=== PATIENT | male | born 1990 | race Caucasian/White ===

== ENCOUNTER 2018-12-31 01:18 | Emergency (ER) | payer MEDICAID ==
[~2018-12-31] VITALS: Ht 170.2 cm; Wt 60.0 kg
[~2018-12-31 01:18] MED LIST: IBUP-1984 PO; KEP500T PO; NO HOME MEDS
[2018-12-31] MEDS ORDERED: LORazepam 2 mg/ml vial IM ONE (01:25)
[2018-12-31] MEDS ORDERED: haloperidol lactate 5mg/ml inj IM ONE (01:25)
[2018-12-31] MEDS ORDERED: diphenhydrAMINE 50 mg/ml inj IM ONE (01:25)
[2018-12-31 01:54] LABS: BASOPHILS % (AUTO) 0.4 % (0-1); EOSINOPHILS # (AUTO) 0.1 X10'3 (0-0.9); EOSINOPHILS % (AUTO) 1.6 % (0-6); HEMATOCRIT 40.8 % (42.0-52.0); HEMOGLOBIN 13.9 g/dl (14.0-17.9); LYMPHOCYTES % (AUTO) 33.5 % (21-51); MEAN CORPUSCULAR HEMOGLOBIN 30.1 PG (27.0-31.0); MEAN CORPUSCULAR VOLUME 88.6 FL (78-98); MEAN PLATELET VOLUME 8.2 FL (7.4-10.4); MONOCYTES # (AUTO) 0.6 X10'3 (0-0.9); MONOCYTES % (AUTO) 6.8 % (2-12); NEUTROPHILS # (AUTO) 5.1 X10'3 (1.8-7.7); NEUTROPHILS % (AUTO) 57.7 % (42-75); PLATELET COUNT 263 X10'3 (140-440); RED BLOOD COUNT 4.61 X10'6 (4.70-6.10); RED CELL DISTRIBUTION WIDTH 13.9 % (11.5-14.5); WHITE BLOOD COUNT 8.9 X10'3 (4.5-11.0)
[2018-12-31 02:00] LABS: ALANINE AMINOTRANSFERASE 83 U/L (12-78); ALBUMIN 3.5 G/DL (3.4-5.0); ALBUMIN/GLOBULIN RATIO 0.9 (1.1-1.5); ALKALINE PHOSPHATASE 101 IU/L (46-116); ANION GAP 3 (8-16); ASPARTATE AMINO TRANSFERASE 13 U/L (10-37); BILIRUBIN,TOTAL 0.2 MG/DL (0.1-1.0); BLOOD UREA NITROGEN 12 MG/DL (7-18); CALCIUM 9.3 MG/DL (8.5-10.1); CHLORIDE 107 MMOL/L (99-107); GLUCOSE 89 MG/DL (70-104); POTASSIUM 3.9 MMOL/L (3.5-5.1); SODIUM 141 MMOL/L (135-145); TOTAL CARBON DIOXIDE 30.7 MMOL/L (24-32); TOTAL PROTEIN 7.3 G/DL (6.4-8.2); eGFR > 90 ML/MIN
[2018-12-31] MEDS ORDERED: nicotine 21mg patch - 24 hr TD ONE (02:00)
[2018-12-31 02:09] LABS: ETHANOL < 0.010 GM/DL (0.0-0.010)
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
--- NOTE | 2018-12-31 02:54 | NUR ---
The patient appears to be asleep at this time.
--- NOTE | 2018-12-31 04:46 | NUR ---
The patient appears to be asleep
--- NOTE | 2018-12-31 07:14 | NUR ---
Received Pt sleeping in bed comfortably with normal respirations.
[2018-12-31 09:47] LABS: URINE AMPHETAMINE SCREEN POSITIVE (Neg); URINE BARBITUATE SCREEN NEGATIVE (Neg); URINE BENZODIAZEPINES SCREEN NEGATIVE (Neg); URINE CANNABINOID SCREEN POSITIVE (Neg); URINE COCAINE SCREEN NEGATIVE (Neg); URINE METHADONE SCREEN NEGATIVE (Neg); URINE OPIATE SCREEN NEGATIVE (Neg); URINE PHENCYCLIDINE SCREEN NEGATIVE (Neg)
--- NOTE | 2018-12-31 10:23 | NUR ---
Pt awoke earlier and ate breakfast. Also used bathroom and was able to provide a urine sample. He returneed to bed and is currently sleeping w/o distress.
--- NOTE | 2018-12-31 12:35 | NUR ---
Pt continues to sleep w/o distress and normal respirations. Awoke briefly to snack on some raisons and returned to sleep. [facility] clinician will wait till pt has slept as needed before doing crisis evaluation.
--- NOTE | 2018-12-31 15:46 | NUR ---
Pt awoke for lunch and retuned to resting in bed. Spoke on phone with girl danny and conversation became irrate and loud at one point. Pt responded to statements to calm down. GF to visit later. Pt currently sleeping w/o distress.
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
[2018-12-31] MEDS ORDERED: OLANZapine **IM** 10 mg inj. IM ONE (16:35)
--- NOTE | 2018-12-31 17:08 | NUR ---
PT IN BED AND CALM WITH O2 SAT OF 98% AT 1645. PT CURRENTLY SLEEPING IN BED.
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
[2018-12-31] MEDS ORDERED: LORazepam 1 MG tablet PO PRN ×2 (18:35→18:40)
[2018-12-31] MEDS ORDERED: haloperidol 5mg tablet PO PRN (18:35)
[2018-12-31] MEDS ORDERED: diphenhydrAMINE 25mg capsule PO PRN (18:35)
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
[2019-01-01 05:39] VITALS: BP 105/64
--- NOTE | 2019-01-01 06:42 | NUR ---
pt appears to be resting comfortably on his right side. no signs of distress
[2019-01-01] MEDS ORDERED: levetiracetam 250mg tablet PO SCH (08:00)
[2019-01-01] MEDS ORDERED: OLANZapine 5mg rapidly disint. tablet PO SCH (08:00)
--- NOTE | 2019-01-01 08:33 | NUR ---
pt awake and eating breakfast. able to asssess patient at this time. pt refusing any medications at this time. I explained that keppra was ordered as he has a hx of seizures. pt stated he doesn't take keppra and hasn't had a seizure for a long time. pt denies any s/i or voices at this time. pt keeps repeating over and over " i want to go home"
--- NOTE | 2019-01-01 09:21 | NUR ---
arnold from mental health her to assess patient.
[2019-01-01] MEDS ORDERED: LORazepam 1 MG tablet PO SCH (21:00)
== END 2019-01-01 09:32 | disposition home or self-care (01) ==
LOC: ER 01:19
DX: R45.851 Suicidal ideations (principal); J45.909 Unspecified asthma, uncomplicated; F12.90 Cannabis use, unspecified, uncomplicated; Z98.890 Other specified postprocedural states; Z88.6 Allergy status to analgesic agent; Z88.8 Allergy status to other drugs, medicaments and biological substances; Z79.899 Other long term (current) drug therapy
CPT/HCPCS: 36415; 80053; 80305; 80320; 84443; 85025; 96372; 99285; J1200; J1630; J2060

== ENCOUNTER 2020-01-19 11:06 | Emergency (ER) | payer MEDICAID, OTHER ==
[~2020-01-19] VITALS: Ht 175.3 cm; Wt 50.9 kg
[2020-01-19] MEDS ORDERED: NALO4SPR BOTHNARES (12:20)
[2020-01-19] MEDS ORDERED: normal saline 1000ML IV soln IVB ONE (12:20)
[2020-01-19 12:56] LABS: EOSINOPHILS # (AUTO) 0.1 X10'3 (0-0.9); EOSINOPHILS % (AUTO) 0.5 % (0-6); HEMATOCRIT 43.1 % (42.0-52.0); HEMOGLOBIN 14.5 g/dl (14.0-17.9); LYMPHOCYTES # (AUTO) 1.3 X10'3 (1.1-4.8); WHITE BLOOD COUNT 11.4 X10'3 (4.5-11.0)
[2020-01-19 12:58] LABS: BASOPHILS % (AUTO) 0.2 % (0-1); MEAN CORPUSCULAR HGB CONC 33.7 g/dL (33.0-36.5); MEAN CORPUSCULAR VOLUME 89.2 FL (78-98); MEAN PLATELET VOLUME 8.2 FL (7.4-10.4); MONOCYTES # (AUTO) 0.8 X10'3 (0-0.9); MONOCYTES % (AUTO) 7.3 % (2-12); NEUTROPHILS # (AUTO) 9.3 X10'3 (1.8-7.7); PLATELET COUNT 247 X10'3 (140-440); RED BLOOD COUNT 4.84 X10'6 (4.70-6.10); RED CELL DISTRIBUTION WIDTH 13.5 % (11.5-14.5)
[2020-01-19 13:11] LABS: ALANINE AMINOTRANSFERASE 19 U/L (12-78); ALKALINE PHOSPHATASE 82 IU/L (46-116); ANION GAP 5 (8-16); ASPARTATE AMINO TRANSFERASE 21 U/L (10-37); BILIRUBIN,TOTAL 0.4 MG/DL (0.1-1.0); BLOOD UREA NITROGEN 20 MG/DL (7-18); BUN/CREATININE RATIO 15.7 (5.4-32.0); CALCIUM 8.7 MG/DL (8.5-10.1); CHLORIDE 108 MMOL/L (99-107); CREATININE 1.27 MG/DL (0.60-1.10); GLUCOSE 78 MG/DL (70-104); LIPASE 57 U/L (73-393); POTASSIUM 3.7 MMOL/L (3.5-5.1); SODIUM 143 MMOL/L (135-145); TOTAL CARBON DIOXIDE 30.1 MMOL/L (24-32); TOTAL PROTEIN 7.9 G/DL (6.4-8.2); eGFR 68 ML/MIN
[2020-01-19] MEDS ORDERED: LORazepam 2 mg/ml vial IV ONE (13:25)
[2020-01-19 13:27] LABS: HIV ANTIBODY 1&2 RAPID NON-REACTIVE (Neg)
[2020-01-19 18:27] VITALS: BP 132/72
== END 2020-01-19 18:27 | disposition home or self-care (01) ==
LOC: ER 11:06
DX: T40 Poisoning by, adverse effect of and underdosing of narcotics and psychodysleptics [hallucinogens] (principal); B19.20 Unspecified viral hepatitis C without hepatic coma; J45.909 Unspecified asthma, uncomplicated; F12.90 Cannabis use, unspecified, uncomplicated; F11.90 Opioid use, unspecified, uncomplicated; Z86.69 Personal history of other diseases of the nervous system and sense organs; Z98.890 Other specified postprocedural states; Z88.6 Allergy status to analgesic agent; Z88.8 Allergy status to other drugs, medicaments and biological substances; Z79.899 Other long term (current) drug therapy
CPT/HCPCS: 36415; 80053; 83690; 85025; 86703; 99285; J7030

== ENCOUNTER 2021-03-06 03:27 | Emergency (ER) | payer MEDICAID, OTHER ==
[~2021-03-06] VITALS: Ht 175.3 cm; Wt 70.0 kg
[~2021-03-06 03:27] MED LIST changes: +NALO4SPR BOTHNARES
[2021-03-06 03:29] VITALS: BP 125/81
[2021-03-06] MEDS ORDERED: CefTRIAXone 250MG IM Kit w/LIDOcaine IM ONE (03:40)
[2021-03-06] MEDS ORDERED: azithromycin 250mg tablet PO ONE (03:40)
[2021-03-06] MEDS ORDERED: metroNIDAZOLE 500mg tablet PO ONE (03:40)
[2021-03-06 04:37] LABS: CLARITY,URINE SLIGHTLY CLOUDY (Clear); COLOR,URINE YELLOW (Yellow); UA COLLECTION TYPE CLN CATCH MIDSTREAM
[2021-03-06 04:38] LABS: GLUCOSE, URINE NEGATIVE (Neg); KETONES,URINE NEGATIVE (Neg); LEUKOCYTE ESTERASE ,URINE NEGATIVE (Neg); NITRITES, URINE NEGATIVE (Neg); OCCULT BLOOD,URINE MODERATE (Neg); PH,URINE 6.5 (4.8-8.0); PROTEIN,URINE TRACE mg/dl (Neg); UROBILINOGEN,URINE 0.2 E.U/dL (0.2-1.0)
[2021-03-06 04:43] LABS: BACTERIA,URINE FEW /HPF (Neg); SQUAMOUS EPITHELIAL CELL,UR NONE SEEN /LPF (FEW); WBC,URINE 30-50 /HPF (0-4)
[2021-03-06 04:44] LABS: CAL OXALATE CRYSTALS 2+ /HPF (NEGATIVE)
== END 2021-03-06 04:36 | disposition home or self-care (01) ==
LOC: ER 03:27
DX: A64 Unspecified sexually transmitted disease (principal); J45.909 Unspecified asthma, uncomplicated; F17.200 Nicotine dependence, unspecified, uncomplicated; F12.90 Cannabis use, unspecified, uncomplicated; F11.90 Opioid use, unspecified, uncomplicated; Z86.69 Personal history of other diseases of the nervous system and sense organs; Z98.890 Other specified postprocedural states; Z88.6 Allergy status to analgesic agent; Z88.8 Allergy status to other drugs, medicaments and biological substances; Z79.899 Other long term (current) drug therapy
CPT/HCPCS: 36415; 81001; 87491; 87591; 96372; 99283; J0696; J3490

== ENCOUNTER 2021-04-07 13:51 | Emergency (ER) | payer MEDICAID ==
[~2021-04-07] VITALS: Ht 165.1 cm; Wt 70.5 kg
[2021-04-07 14:38] VITALS: BP 117/63
[2021-04-07] MEDS ORDERED: SULF1TAB49 PO (14:51)
== END 2021-04-07 15:02 | disposition home or self-care (01) ==
LOC: ER 13:52
DX: L02.11 Cutaneous abscess of neck (principal); G40.909 Epilepsy, unspecified, not intractable, without status epilepticus; J45.909 Unspecified asthma, uncomplicated; F12.90 Cannabis use, unspecified, uncomplicated; F11.90 Opioid use, unspecified, uncomplicated; F15.90 Other stimulant use, unspecified, uncomplicated; Z79.899 Other long term (current) drug therapy; Z88.8 Allergy status to other drugs, medicaments and biological substances; Z59.0 Homelessness
CPT/HCPCS: 99283

== ENCOUNTER 2021-06-11 22:42 | Emergency (ER) | payer MEDICAID ==
[~2021-06-11] VITALS: Ht 175.3 cm; Wt 70.5 kg
--- NOTE | 2021-06-11 23:55 | NUR ---
called and spoke with prince at animal regulations for [facility] to report dog bite. asked for case number and was not given one as she said it would be followed up in the morning and assigned a number at that time. will fax report to [facility] when treaatment determined. fax is [phone].
[2021-06-12] MEDS ORDERED: amox tr/potassium clavulanate 875/125mg TAB PO ONE (00:20)
[2021-06-12] MEDS ORDERED: HYDROcodone/acetaminophen 10/325mg tab PO ONE (00:20)
[2021-06-12] MEDS ORDERED: ketorolac trometh. 30mg/ml inj. IM ONE (00:20)
[2021-06-12 00:26] VITALS: BP 133/82
[2021-06-12] MEDS ORDERED: AMOX-117 PO (00:50)
== END 2021-06-12 01:12 | disposition home or self-care (01) ==
LOC: ER 22:42
DX: S00.81XA Abrasion of other part of head, initial encounter (principal); S61.431A Puncture wound without foreign body of right hand, initial encounter; G40.909 Epilepsy, unspecified, not intractable, without status epilepticus; J45.909 Unspecified asthma, uncomplicated; Z88.8 Allergy status to other drugs, medicaments and biological substances; Z79.899 Other long term (current) drug therapy; W54.0XXA Bitten by dog, initial encounter; Y93.89 Activity, other specified; Y92.89 Other specified places as the place of occurrence of the external cause; Y99.8 Other external cause status
CPT/HCPCS: 73130; 96372; 99283; J1885

== ENCOUNTER 2021-07-06 11:14 | Emergency (ER) | payer MEDICAID ==
[~2021-07-06] VITALS: Ht 175.3 cm; Wt 70.0 kg
[2021-07-06 11:20] VITALS: BP 129/80
[2021-07-06] MEDS ORDERED: azithromycin 250mg tablet PO ONE (11:30)
[2021-07-06] MEDS ORDERED: CefTRIAXone 250MG IM Kit w/LIDOcaine IM ONE (11:30)
[2021-07-06 12:45] LABS: CLARITY,URINE SLIGHTLY CLOUDY (Clear); GLUCOSE, URINE NEGATIVE (Neg); KETONES,URINE NEGATIVE (Neg); LEUKOCYTE ESTERASE ,URINE SMALL (Neg); NITRITES, URINE NEGATIVE (Neg); OCCULT BLOOD,URINE NEGATIVE (Neg); PROTEIN,URINE NEGATIVE (Neg); UROBILINOGEN,URINE 0.2 E.U/dL (0.2-1.0)
[2021-07-06 12:49] LABS: COLOR,URINE STRAW (Yellow); UA COLLECTION TYPE CLN CATCH MIDSTREAM
[2021-07-06 12:54] LABS: BACTERIA,URINE FEW /HPF (Neg); MUCUS STRANDS NONE SEEN /LPF (Neg); RBC,URINE NONE SEEN /HPF (0-2); SQUAMOUS EPITHELIAL CELL,UR FEW /LPF (FEW); WBC,URINE 30-50 /HPF (0-4)
== END 2021-07-06 12:23 | disposition home or self-care (01) ==
LOC: ER 11:14
DX: A64 Unspecified sexually transmitted disease (principal); R30.0 Dysuria; J45.909 Unspecified asthma, uncomplicated; F12.90 Cannabis use, unspecified, uncomplicated; F11.90 Opioid use, unspecified, uncomplicated; Z86.69 Personal history of other diseases of the nervous system and sense organs; Z98.890 Other specified postprocedural states; Z88.8 Allergy status to other drugs, medicaments and biological substances; Z88.6 Allergy status to analgesic agent; Z79.899 Other long term (current) drug therapy
CPT/HCPCS: 81001; 87088; 96372; 99283; J0696

== ENCOUNTER 2021-08-01 18:02 | Emergency (ER) | payer MEDICAID, OTHER ==
[~2021-08-01] VITALS: Ht 175.3 cm; Wt 72.7 kg
[2021-08-01 18:12] VITALS: BP 147/85
[2021-08-01] MEDS ORDERED: CEPH250T PO (22:45)
[2021-08-01] MEDS ORDERED: ACET-2971 PO (22:45)
== END 2021-08-01 22:58 | disposition home or self-care (01) ==
LOC: ER 18:02
DX: S81.811A Laceration without foreign body, right lower leg, initial encounter (principal); J45.909 Unspecified asthma, uncomplicated; F12.90 Cannabis use, unspecified, uncomplicated; F11.90 Opioid use, unspecified, uncomplicated; Z86.69 Personal history of other diseases of the nervous system and sense organs; Z98.890 Other specified postprocedural states; Z88.8 Allergy status to other drugs, medicaments and biological substances; Z88.6 Allergy status to analgesic agent; Z79.2 Long term (current) use of antibiotics; Z79.899 Other long term (current) drug therapy; X58.XXXA Exposure to other specified factors, initial encounter; Y93.89 Activity, other specified; Y92.89 Other specified places as the place of occurrence of the external cause; Y99.8 Other external cause status
CPT/HCPCS: 12031; 73590; 99284

== ENCOUNTER 2021-08-06 19:08 | Emergency (ER) | payer OTHER ==
[~2021-08-06] VITALS: Ht 177.8 cm; Wt 79.5 kg
[~2021-08-06 19:08] MED LIST changes: +ACET-2971 PO; +CEPH250T PO
[2021-08-06 19:13] VITALS: BP 140/78
[2021-08-06] MEDS ORDERED: SULF1TAB49 PO (19:18)
[2021-08-06] MEDS: HYDROcodone/acetaminophen 5mg/325mg tablet PO ONE (19:46)
[2021-08-06] MEDS: sulfamethoxazole/trimethoprim DS (800/160mg) tablet PO ONE (19:46)
[2021-08-06] MEDS: CefTRIAXone 1000mg IM Kit (w/lidocaine diluent) IM ONE (19:46)
== END 2021-08-06 20:02 | disposition home or self-care (01) ==
LOC: ER 19:09
DX: S81.811A Laceration without foreign body, right lower leg, initial encounter (principal); L08.9 Local infection of the skin and subcutaneous tissue, unspecified; Z79.2 Long term (current) use of antibiotics; Z79.899 Other long term (current) drug therapy; Z88.8 Allergy status to other drugs, medicaments and biological substances; G40.909 Epilepsy, unspecified, not intractable, without status epilepticus; J45.909 Unspecified asthma, uncomplicated; F12.90 Cannabis use, unspecified, uncomplicated; F11.90 Opioid use, unspecified, uncomplicated; X58.XXXA Exposure to other specified factors, initial encounter; Y93.89 Activity, other specified; Y92.89 Other specified places as the place of occurrence of the external cause; Y99.8 Other external cause status
CPT/HCPCS: 96372; 99283; J0696; 12001

== ENCOUNTER 2021-10-03 15:07 | Emergency (ER) | payer OTHER ==
[~2021-10-03] VITALS: Ht 175.3 cm; Wt 68.6 kg
[~2021-10-03 15:07] MED LIST changes: -CEPH250T PO
[2021-10-03 15:18] VITALS: BP 118/66
== END 2021-10-03 15:44 | disposition home or self-care (01) ==
LOC: ER 15:08
DX: S81.811D Laceration without foreign body, right lower leg, subsequent encounter (principal); J45.909 Unspecified asthma, uncomplicated; F12.90 Cannabis use, unspecified, uncomplicated; F11.90 Opioid use, unspecified, uncomplicated; F19.90 Other psychoactive substance use, unspecified, uncomplicated; Z86.69 Personal history of other diseases of the nervous system and sense organs; Z88.8 Allergy status to other drugs, medicaments and biological substances; Z88.6 Allergy status to analgesic agent; Z79.899 Other long term (current) drug therapy; X58.XXXD Exposure to other specified factors, subsequent encounter
CPT/HCPCS: 99281

== ENCOUNTER 2023-05-19 13:18 | Emergency (ER) | payer MEDICAID | END 2023-05-19 13:47 | disposition left against medical advice (07) | LOC: ER 13:18 | DX: T14.8XXA Other injury of unspecified body region, initial encounter (principal); Z53.21 Procedure and treatment not carried out due to patient leaving prior to being seen by health care provider; W54.0XXA Bitten by dog, initial encounter; Y93.89 Activity, other specified; Y92.89 Other specified places as the place of occurrence of the external cause; Y99.8 Other external cause status ==